=== PATIENT | female | born 1975 | race Caucasian/White ===

== ENCOUNTER 2019-04-25 22:43 | Emergency (ER) | payer OTHER ==
[~2019-04-25] VITALS: Ht 157.5 cm; Wt 86.2 kg
[2019-04-26 02:56] VITALS: BP 95/47
== END 2019-04-26 02:59 | disposition home or self-care (01) ==
LOC: ER 22:43
DX: S01.01XA Laceration without foreign body of scalp, initial encounter (principal); X99.8XXA Assault by other sharp object, initial encounter; Y93.89 Activity, other specified; Y92.89 Other specified places as the place of occurrence of the external cause; Y99.8 Other external cause status